=== PATIENT | male | born 1995 | race Caucasian/White ===

== ENCOUNTER 2017-05-01 13:10 | Emergency (ER) | payer SELFPAY | END 2017-05-01 14:42 | disposition left against medical advice (07) | LOC: EMS 13:12 | DX: Z53.21 Procedure and treatment not carried out due to patient leaving prior to being seen by health care provider (principal) ==

== ENCOUNTER 2022-01-09 15:00 | Emergency (ER) | payer OTHER ==
[~2022-01-09] VITALS: Ht 180.3 cm; Wt 84.1 kg
[2022-01-09] MEDS ORDERED: IBUPROFEN 600 MG TABLET PO ONE (16:00)
[2022-01-09 16:52] VITALS: BP 126/80
== END 2022-01-09 17:18 | disposition home or self-care (01) ==
LOC: EMS 15:06
DX: S16.1XXA Strain of muscle, fascia and tendon at neck level, initial encounter (principal); V89.2XXA Person injured in unspecified motor-vehicle accident, traffic, initial encounter; Y93.89 Activity, other specified; Y92.89 Other specified places as the place of occurrence of the external cause; Y99.8 Other external cause status
CPT/HCPCS: 72040; 99283